=== PATIENT | female | born 1975 | race Caucasian/White ===

== ENCOUNTER 2020-03-03 08:50 | Outpatient (CLI) | payer OTHER, SELFPAY | END 2020-03-03 08:51 | disposition home or self-care (01) | LOC: ANHAUDIO 08:53 | PROVIDERS: PCP Otolaryngology; Visit Provider Internal Medicine | DX: H90.3 Sensorineural hearing loss, bilateral (principal) | CPT/HCPCS: 92557; 92567 ==

== ENCOUNTER 2020-07-03 11:30 | Outpatient (RCR) | payer OTHER, SELFPAY | END 2020-07-03 23:59 | disposition home or self-care (01) | LOC: ANHAUDIO 11:30 | PROVIDERS: PCP Internal Medicine; Visit Provider Internal Medicine | DX: Z46.1 Encounter for fitting and adjustment of hearing aid (principal) | CPT/HCPCS: 99199; V5221; V5240 ==

== ENCOUNTER 2020-10-13 15:09 | Outpatient (RCR) | payer OTHER, SELFPAY | END 2020-10-13 23:59 | disposition home or self-care (01) | LOC: ANHAUDIO 15:09 | PROVIDERS: PCP Internal Medicine; Visit Provider Internal Medicine | DX: Z46.1 Encounter for fitting and adjustment of hearing aid (principal) | CPT/HCPCS: 99199 ==